=== PATIENT | male | born 1975 | race Caucasian/White ===

== ENCOUNTER 2025-07-25 12:51 | Emergency (ER) | payer OTHER, SELFPAY ==
[2025-07-25 12:55] VITALS: BP 141/92
[2025-07-25 13:08] LABS: Hematocrit 45.3 % (39.0-52.0); Hemoglobin 16.4 g/dL (13.0-18.0); Mean Corp Hgb Conc. 36.2 g/dL (33.0-37.0); Mean Corpuscular Volume 77.7 fL (80.0-94.0); Nucleated Red Blood Cells % 0 % (-); Platelet Count 341 10^3/uL (130-400); Red Cell Dist. Width 13.0 % (11.5-14.5)
[2025-07-25 13:40] LABS: ALT (SGPT) 21 U/L (0-50); AST (SGOT) 18 U/L (17-59); Albumin 4.2 g/dl (3.5-5.0); Alkaline Phosphatase 72 U/L (38-126); Blood Urea Nitrogen 19 mg/dl (9-20); Calcium 8.9 mg/dl (8.4-10.2); Carbon Dioxide 20 mmol/L (22-30); Chloride 103 mmol/L (98-107); Glucose 162 mg/dl (70-99); Potassium 3.6 mmol/L (3.5-5.1); Sodium 132 mmol/L (135-145); Total Protein 7.1 g/dl (6.3-8.2); eGFR > 60.00
[2025-07-25 13:42] VITALS: BP 138/97
[2025-07-25 14:00] VITALS: BP 128/83
[2025-07-25 15:01] VITALS: BP 127/78
[2025-07-25] MEDS: TORADOL 15 MG IV (17:01)
[2025-07-25] MEDS: AUGMENTIN 875 MG/125 MG 1 TABLET PO (17:01)
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
== END 2025-07-25 17:35 | disposition home or self-care (01) ==
LOC: EMR 12:51
PROVIDERS: EMERGENCY PHYSICIAN Emergency Medicine; FAMILY PHYSICIAN Internal Medicine
DX: K52.9 Noninfective gastroenteritis and colitis, unspecified (principal)
CPT/HCPCS: 99284; 96374; 74177; 80053; 85025; 86850; 86900; 86901; 87045; 87046; 87324; 87427; 87449; Q9967